=== PATIENT | female | born 2000 | race Caucasian/White ===

== ENCOUNTER → 2020-03-10 09:21 | Outpatient (BNVA) | payer MEDICAID, SELFPAY | PROVIDERS: Visit Provider Obstetrics & Gynecology | DX: Z34.01 Encounter for supervision of normal first pregnancy, first trimester (principal) | CPT/HCPCS: 80053; 80307; 84315; 85027; 86592; 86762; 86803; 86850; 86900; 87340; 87806 ==

== ENCOUNTER → 2020-04-03 14:36 | Outpatient (BNVA) | payer MEDICAID, SELFPAY | PROVIDERS: Visit Provider Obstetrics & Gynecology | DX: O26.891 Other specified pregnancy related conditions, first trimester (principal); N89.8 Other specified noninflammatory disorders of vagina; O23.599 Infection of other part of genital tract in pregnancy, unspecified trimester; B96.89 Other specified bacterial agents as the cause of diseases classified elsewhere | CPT/HCPCS: 84315; 87210; 88175 ==

== ENCOUNTER → 2020-05-23 16:21 | Outpatient (BNVA) | payer MEDICAID, SELFPAY | PROVIDERS: Visit Provider Obstetrics & Gynecology | DX: Z36.89 Encounter for other specified antenatal screening (principal) | CPT/HCPCS: 76805 ==

== ENCOUNTER → 2020-07-24 10:01 | Outpatient (BNVA) | payer MEDICAID, SELFPAY | PROVIDERS: Visit Provider Obstetrics & Gynecology | DX: O99.333 Smoking (tobacco) complicating pregnancy, third trimester (principal); F17.210 Nicotine dependence, cigarettes, uncomplicated; Z3A.29 29 weeks gestation of pregnancy | CPT/HCPCS: 82950; 84315; 85025 ==

== ENCOUNTER → 2020-07-31 10:03 | Outpatient (BNVA) | payer MEDICAID, SELFPAY | PROVIDERS: Visit Provider Obstetrics & Gynecology | DX: Z34.02 Encounter for supervision of normal first pregnancy, second trimester (principal) | CPT/HCPCS: 82951; 82952 ==

== ENCOUNTER → 2020-08-30 11:00 | Outpatient (BNVA) | payer MEDICAID, SELFPAY | PROVIDERS: Visit Provider Nurse Practitioner Women's Health | DX: O99.013 Anemia complicating pregnancy, third trimester (principal); D64.9 Anemia, unspecified; O99.333 Smoking (tobacco) complicating pregnancy, third trimester; F17.200 Nicotine dependence, unspecified, uncomplicated | CPT/HCPCS: 84315; 85027 ==

== ENCOUNTER → 2020-09-11 08:01 | Outpatient (BNVA) | payer MEDICAID, SELFPAY | PROVIDERS: Visit Provider Obstetrics & Gynecology | DX: Z34.03 Encounter for supervision of normal first pregnancy, third trimester (principal) | CPT/HCPCS: 84315; 87081 ==

== ENCOUNTER 2020-09-20 20:07 | Outpatient (CLI) | payer MEDICAID, SELFPAY ==
[2020-09-20 20:25] VITALS: BP 121/71; PULSE 106
[2020-09-20 20:30] VITALS: RESP 18; BMI 33.5
[2020-09-20 21:16] LABS: Nitrazine Paper, PH Negative
[2020-09-20 22:16] VITALS: BP 115/71; PULSE 106
[2020-09-20 22:34] VITALS: BP 118/70; PULSE 96
[2020-09-20 22:35] VITALS: TEMP 36.2
[2020-09-20 22:41] VITALS: BP 118/70; PULSE 96; RESP 17; TEMP 36.2
== END 2020-09-20 22:41 | disposition home or self-care (01) ==
LOC: OPOB 20:23 → OBGYN 20:24
PROVIDERS: Visit Provider Obstetrics & Gynecology
DX: O26.899 Other specified pregnancy related conditions, unspecified trimester (principal); Z3A.00 Weeks of gestation of pregnancy not specified; N89.8 Other specified noninflammatory disorders of vagina
CPT/HCPCS: 59025; 83986; 99211

== ENCOUNTER → 2020-09-26 08:44 | Outpatient (BNVA) | payer MEDICAID, SELFPAY | PROVIDERS: Visit Provider Obstetrics & Gynecology | DX: O99.820 Streptococcus B carrier state complicating pregnancy (principal); O99.333 Smoking (tobacco) complicating pregnancy, third trimester; F17.200 Nicotine dependence, unspecified, uncomplicated; O21.9 Vomiting of pregnancy, unspecified; Z3A.00 Weeks of gestation of pregnancy not specified | CPT/HCPCS: 84315; 87635 ==

== ENCOUNTER 2020-10-02 09:05 | Outpatient (CLI) | payer MEDICAID, SELFPAY ==
[2020-10-02 09:21] VITALS: BP 130/70; PULSE 104
[2020-10-02 09:22] VITALS: TEMP 36.6
[2020-10-02 09:29] VITALS: RESP 18; TEMP 36.6
[2020-10-02 09:30] VITALS: BMI 35.4
[2020-10-02 09:52] VITALS: BP 121/78; PULSE 100
--- NOTE | 2020-10-02 10:12 | PC.NURSE ---
PATIENT HAD LOTS OF QUESTIONS, THEY WERE ANSWERED. THIS APPLICATION DESIGN ENGINEER CALLED DR. TOM AND INFORMED HER ABOUT IN AM AND SHE WAS NOT AWARE OF IT BUT WILL BE HERE.
[2020-10-02 10:14] VITALS: BP 121/78; PULSE 100; RESP 18; TEMP 36.6
== END 2020-10-02 10:05 | disposition home or self-care (01) ==
LOC: OPOB 09:09 → OBGYN 09:10
PROVIDERS: Visit Provider Obstetrics & Gynecology
DX: O36.8190 Decreased fetal movements, unspecified trimester, not applicable or unspecified (principal); Z3A.00 Weeks of gestation of pregnancy not specified
CPT/HCPCS: 59025; 84315; 99211

== ENCOUNTER 2020-10-03 04:30 | Inpatient (IN) | payer MEDICAID, SELFPAY ==
[2020-10-03] VITALS (15 sets, daily range): BP systolic 93–141; BP diastolic 56–101; PULSE 78–101; RESP 16–18; TEMP 36.8; O2SAT 97–100; BMI 35.6
[2020-10-03 05:08] LABS: Basophils % 0.3 %; Eosinophils # 0.1 10^3/uL (0.0-0.8); Eosinophils % 0.8 %; Hematocrit 36.7 % (37.0-47.0); Hemoglobin 12.2 g/dL (11.5-15.3); Lymphocytes # 1.9 10^3/uL (0.8-4.8); Lymphocytes % 20.9 %; Mean Corpuscular HGB Conc 33.2 g/dL (30.0-36.0); Mean Corpuscular Hemoglobin 29.7 pg (28.0-34.0); Mean Corpuscular Volume 89.3 fL (81-99); Mean Platelet Volume 12.1 fL (7.4-10.4); Monocytes # 0.6 10^3/uL (0.2-0.9); Monocytes % 6.9 %; Neutrophils # 6.49 10^3/uL (1.8-7.7); Neutrophils % 70.4 %; Nucleated Red Blood Cells % 0 %; Platelet Count 157 10^3/cmm (130-400); Red Blood Count 4.11 10^6/uL (4.1-5.3); Red Cell Distribution Width 17.2 % (12.1-15.1); White Blood Count 9.2 10^3/uL (4.0-10.0)
[2020-10-03] MEDS: lactated ringers 1,000 ML 999 ML IV ×2 (05:20→15:42)
[2020-10-03] MEDS: lactated ringers 1,000 ML 125 ML IV (06:25)
--- NOTE | 2020-10-03 06:46 | ANES.PREANE2 ---
Pre-Anesthetic Assessment Pre-Anesthetic Assessment: Height/Weight: Height 1.6 m Weight 91.172 kg Temp Pulse Resp BP 98.3 F 100 16 114/77 10/03/20 06:08 10/03/20 04:46 10/03/20 04:55 10/03/20 04:46 Preop Diagnosis: macrosomia Proposed Procedure: Operation Date: 10/03/20 07:20 Proposed Procedures p Section 26330 P08.0(Not Applicable) - Elza Paul MD Was Beta Adrienne taken within 24 hours: N/A Was Clonidine taken within 24 hours: N/A Last intake: 10/03/20 0000 Social: Social History: Tobacco Comment: Vape Exam: Pre-Anes Outpt Exam: alert, oriented x 3, clear to auscultation bilaterally and regular rate & rhythm Airway: Submandibular: WNL Cervical ROM: WNL MP: 2 Dentition: Full History/ROS: No significant history except as noted and No significant complaints Pulmonary: Pulmonary: None reported CV/HEM: CV/HEM: Anemia and None reported : : None reported Hepatic: Hepatic: None reported GI: GI: GERD Metabolic: Comments: borderline gestational diabetes. Musc/skel: Musc/skel: None reported Neuropsych: Neuropsych: None reported Anesthetic Plan: ASA status: 2 Anesthesia: Anesthesia Evaluation and Eval. for regional block Risk of > 500 ml blood loss (7ml/kg in children): Yes, adequate IV access and fluids planned Meds/Allergies Current Medications: Current Medications Generic Name Dose Route Start Last Admin Trade Name Freq PRN Reason Stop Dose Admin Lactated Ringer's 1,000 mls @ 125 m ls/hr 10/03/20 05:00 10/03/20 06:25 Lactated Ringers IV 125 mls/hr .Q8H YADIRA Administration PFSH Anesthesia PFSH: Medical History No pertinent past medical history neghx: htn,dm,thyroid,dvt/pe,herpes Denies partners with herpes Surgical History No history of previous surgery Family History Family/Other Breast cancer Paternal great grandmother-- older age Diabetes Maternal aunt Mother Hypercholesteremia Hypertension Thyroid disease Father Stroke Social History Smoking and tobacco status: current every day smoker e-cigarettes E-cig/vape details: Reports vapes multiple times per day Alcohol intake: never Additional social history: - Tobacco use: Vape-- 20 times per day Alcohol use: Never Drug use: Never Female Reproductive History: : 1 Data Anesthesia CBC & Chem 7: 10/03/20 04:50 Other Labs: Laboratory Results - last 48 hr 10/03/20 04:50 WBC 9.2 RBC 4.11 Hgb 12.2 Hct 36.7 L MCV 89.3 MCH 29.7 MCHC 33.2 RDW 17.2 H Plt Count 157 MPV 12.1 H Neut % (Auto) 70.4 Lymph % (Auto) 20.9 [place] % (Auto) 6.9 Eos % (Auto) 0.8 Baso % (Auto) 0.3 Neut # (Auto) 6.49 Lymph # (Auto) 1.9 [place] # (Auto) 0.6 Eos # (Auto) 0.1 Baso # (Auto) 0.0 Nucleated RBC % (auto) 0 Nucleated RBCs # 0.0 Cardiac Studies: No Data to Display
[2020-10-03] MEDS: famotidine 20 mg/2 mL INJ IVP (06:54)
[2020-10-03] MEDS: metoclopramide 5 mg/mL SDV 2 mL 10 MG IVP (06:54)
[2020-10-03] MEDS: citric acid-sodium citrate 30 mL UDC PO (06:54)
--- NOTE | 2020-10-03 07:03 | W.PM.OPSUD ---
Surgery/Procedure H&P Update DATE OF PROCEDURE: October 03, 2020 DATE H&P PERFORMED: 10/02/20 H&P UPDATE INFORMATION: I have reviewed H&P completed within last 30 days, I have examined patient prior to procedure, No changes to prior documentation and Changes to prior documentation as noted here CHANGES TO PREVIOUS DOCUMENTATION: Risks, benefits and alternatives to procedure were discussed with the patient including but not limited to: pain, bleeding, infection, development of a blood clot or pulmonary embolism, damage to bowel, bladder, ureters, blood vessels, formation of scar tissue or even . . These are the most common complications, but there may be other, unforseen complications that could arise during surgery. The patient accepts these risks and desires to proceed. PREOP DIAGNOSIS: macrosomia PLANNED PROCEDURE: Operation Date: 10/03/20 07:20 Proposed Procedures p Section 06243 P08.0(Not Applicable) - Elza Paul MD
--- NOTE | 2020-10-03 08:16 | P.OP_ITS ---
Operative Report Date of procedure: October 03, 2020 Pre-op Diagnosis: macrosomia Post-op diagnosis: same Post-op Findings: term male in cephalic presentation. normal appearing uterus, tubes and ovaries Procedure Done: primary Specimens removed/disposition: placenta Pathology: none sent Anesthesia: Other (spinal) Estimated blood loss (mL): 100 IV fluids (mL): 1,000 Urine output (mL): 400 Complications: none Condition: stable Disposition: PACU Brief History: 20 year old at 39 2/7 weeks with known macrosomia elected to have a primary Procedure: The patient was taken to the operating room where spinal anesthesia was administered and found to be adequate. She was prepped and draped in the normal sterile fashion in the dorsal supine position with a leftward tilt. A Pfannenstiel skin incision was made and carried down to the underlying layer of fascia. The fascia was nicked in the midline and extended laterally with the Lowe scissors. The fascia was then tented up and the rectus muscles dissected off sharply. The rectus muscles were and the peritoneum entered bluntly with the digit. The peritoneal incision was extended superiorly and inferiorly with good visualization of the bladder. The Kyle O retractor was placed. It was clear of any bowel or omentum. The bladder flap was created sharply with the Metzenbaum scissors. A low transverse uterine incision was made and carried down to the bag of water. The bag of water was ruptured and the uterine incision extended cephalocaudad. The scalp was grasped and brought through the incision. The nose and mouth were bulb suctioned. The shoulders and body delivered atraumatically. The baby was allowed to rest, while being dried, for 1 minute and then the cord was clamped and cut. The baby was handed to the waiting greenhouse specialist. The placenta was delivered by expression. The uterus was exteriorized and cleared of all clots and debris. The uterine incision was closed with 0 Vicryl in a running fashion. A second imbricating layer of 3-0 Monocryl was used to close the uterus. The bladder flap was closed with 3-0 Monocryl. There was excellent hemostasis. The Kyle O retractor was removed. The uterus was returned to the abdomen. The peritoneum was closed with 3-0 Monocryl, incorporating the rectus muscle. The fascia was closed with 0 Vicryl in 2 separate sutures overlapping in the midline. The skin was closed with absorbable adelso. Apgars on baby 9 at 1 minute and 9 at 5 minutes. weight 9 pounds 5 ounces. Mother and baby were stable post delivery.
[2020-10-03] MEDS: ketorolac 30 mg/mL INJ IVP ×2 (14:33→20:52)
[2020-10-03] MEDS: dextrose 5%-lactated ringers 1,000 ML 125 ML IV (15:06)
[2020-10-03] MEDS: scopolamine 1.5 Patch 1 PATCH TRANSDERMA (16:55)
[2020-10-03] MEDS: FUROsemide 10 mg/mL SDV 2mL IVP (18:25)
[2020-10-03 21:23] LABS: Hematocrit 32.8 % (37.0-47.0); Hemoglobin 10.7 g/dL (11.5-15.3); Mean Corpuscular HGB Conc 32.6 g/dL (30.0-36.0); Mean Corpuscular Hemoglobin 29.8 pg (28.0-34.0); Mean Corpuscular Volume 91.4 fL (81-99); Mean Platelet Volume 12.2 fL (7.4-10.4); Platelet Count 122 10^3/cmm (130-400); Red Blood Count 3.59 10^6/uL (4.1-5.3); Red Cell Distribution Width 17.1 % (12.1-15.1); White Blood Count 10.6 10^3/uL (4.0-10.0)
[2020-10-04] MEDS: dextrose 5%-lactated ringers 1,000 ML 125 ML IV (00:45)
[2020-10-04] MEDS: ketorolac 30 mg/mL INJ IVP (03:38)
[2020-10-04 04:30] VITALS: BP 118/72; PULSE 90; TEMP 36.7
--- NOTE | 2020-10-04 07:35 | P.PN_ITS ---
Subjective Subjective: Interval history: The patient is doing well this morning. pain is well controlled. she is tolerating a regular diet. she is ambulating. baby is feeding well. Medications: Reviewed: Yes Vitals/I&O/Wt Last Vital Signs Temp 98.0 F 10/04/20 04:30 Pulse 90 10/04/20 04:30 Resp 16 10/03/20 22:15 BP 118/72 10/04/20 04:30 Pulse Ox 97 10/03/20 22:15 10/03/20 10/04/20 10/04/20 22:59 06:59 14:59 Intake Total 1000 / 2200 Output Total 840 / 2075 1600 / 3675 Balance -840 / -875 -600 / -1475 Weight last 48 hrs Weight 201 lb Physical Exam Const: COMMON NORMALS: no acute distress, average body habitus, patient oriented x3, no limitations, healthy appearing, alert and well nourished GENERAL APPEARANCE: cooperative, comfortable, well kempt and well developed ORIENTATION/CONSCIOUSNESS: Yes awake, Yes oriented to person, Yes oriented to place and Yes oriented to time Resp: COMMON NORMALS: normal respiratory effort EFFORT & INSPECTION: Yes able to speak in complete sentences GI: COMMON NORMALS: Soft to palpation and non-tender PALPATION: Yes Soft to palpation Extremity: COMMON NORMALS: no clubbing, cyanosis or edema Neuro: COMMON NORMALS: patient oriented x3 SENSORIUM/ORIENTATION: Yes alert, Yes oriented to person, Yes oriented to place and Yes oriented to time Psych: APPEARANCE: Yes well kempt Skin: WOUNDS: Yes surgical site (clean/dry and covered) Urinary Catheter Management^: Weiss: Cath Placed During This Visit: yes Reason for Continuing Indwelling Catheter: Perioperative Use in Selected Surgeries Urinary Catheter Date of Insertion: 10/03/20 Urinary Catheter Time of Insertion: 07:30 Data : 10/03/20 21:00 A&P Assessment and plan (1) Postoperative state: doing well postoperatively anticipated discharge tomorrow Status: Acute Attestations Medical Necessity Statement*: post op after . admit as inpatient Coding Level of Care Code Acute Plastic Extrusion Operator for Navid Baker Diagnoses Postoperative state Z98.890
[2020-10-04] MEDS: prenatal vitamin Capsule 1 CAP PO (09:47)
[2020-10-04] MEDS: docusate sodium 100 mg Capsule PO (09:47)
[2020-10-04 11:12] VITALS: BP 110/65; PULSE 89; RESP 18; TEMP 37; O2SAT 96
[2020-10-04] MEDS: HYDROcodone-acetaminophen 5-325 mg Tablet PO (11:17)
[2020-10-04 16:52] VITALS: BP 120/78; PULSE 100; RESP 16; TEMP 36.8; O2SAT 97
[2020-10-04 16:53] VITALS: BP 120/78; PULSE 100; RESP 16; TEMP 36.8; O2SAT 97
--- NOTE | 2020-10-05 07:37 | P.DS_ITS ---
Discharge Providers Date of Admission: 10/03/20 04:30 Date of Discharge: October 04, 2020 Attending Provider at Admission: Elza Paul MD Attending Provider at Discharge: Elza Paul MD Diagnoses at Discharge Discharge Diagnosis (1) Postoperative state: Status: Acute Reason for Visit Reason for Visit: Hospital Course Hospital Course The patient was admitted for primary at term. She was doing well POD#1 and in the evening, the baby took a turn for the worse and needed to be transferred to [place]. The patient requested discharge to go with the baby. She was discharged in stable condition. Physical Exam Urinary Catheter Management^: Weiss: Cath Placed During This Visit: yes, but has since been removed by the nurse Reason for Continuing Indwelling Catheter: Decision to DC Catheter Urinary Catheter Date of Insertion: 10/03/20 Urinary Catheter Time of Insertion: 07:30 Date Urinary Catheter Removed: 10/04/20 Time Urinary Catheter Discontinued: 08:00 Discharge Data Vitals: Last Vital Signs Temp 98.3 F 10/04/20 16:53 Pulse 100 10/04/20 16:53 Resp 16 10/04/20 16:53 BP 120/78 10/04/20 16:53 Pulse Ox 97 10/04/20 16:53 Discharge Plan Discharge Patient Disposition: Home Prescriptions: New ibuprofen 800 mg Tablet 800 mg PO TID RF: 0 docusate sodium [DOK] 100 mg Capsule 100 mg PO BID RF: 0 hydrocodone-acetaminophen 5-325 mg tablet 1 tab PO Q4H Qty: 14 RF: 0 Continued calcium carbonate [Antacid Extra-Strength] 300 mg (750 mg) tablet,chewable 300 mg PO BID RF: 0 polyethylene glycol 3350 [Miralax] 17 gram/dose powder 17 g PO DAILY RF: 0 famotidine [Pepcid] 40 mg tablet 40 mg PO DAILY Qty: 30 RF: 2 metoclopramide HCl [Reglan] 10 mg tablet 10 mg PO Q6H PRN (Reason: nausea and vomiting) Qty: 120 RF: 0 acetaminophen [Tylenol Extra Strength] 500 mg tablet 500 mg PO Q6H PRN (Reason: Pain) RF: 0 ferrous sulfate [Feosol] 325 mg (65 mg iron) tablet 325 mg PO TID RF: 0 Gummies 400 mcg-35 mg- 25 mg-5 mg tablet,chewable 2 tab PO DAILY RF: 0 Discharge Orders: Discharge Order (Routine); Ordered 10/04/20 Ordered By: Elza Paul Referrals: Elza Paul MD [Physician] - 4-7 days (Please keep scheduled appointments on October 11, 2020 at 1:00 PM for mom's 1 week incision check up with Dr. Paul and on November 16, 2020 at 1:00 PM for mom's [address] up [address] Paul. ) Discharge Diet: As Directed Discharge Activity: Limit activity as instructed Patient Instructions: OB Abdominal Surgery - [facility], OB [facility], OB Discharge Report, OB Food/Drug Interaction Guide, OB Care at Home, Opioid Safety, OB Home Care Discharge Attestations Time Spent in Discharge Care*: less than 30 min Quality Metrics Clinical Quality Measures During this hospital stay, did patient experience: None Coding Level of Care Code Acute [facility] note Diagnoses Postoperative state Z98.890
--- NOTE | 2020-10-05 16:19 | PC.RESP ---
SMOKING CESSATION INFORMATION SENT TO PATIENT.
== END 2020-10-04 17:30 | disposition home or self-care (01) | DRG 788 ==
PROVIDERS: Admitting Provider Obstetrics & Gynecology; Visit Provider Obstetrics & Gynecology
PROC: 10D00Z1 Extraction of Products of Conception, Low, Open Approach (ICD-10-PCS; CPT 59514; principal; 2020-10-03 07:00)
DX: O36.63X0 Maternal care for excessive fetal growth, third trimester, not applicable or unspecified (principal); O99.334 Smoking (tobacco) complicating childbirth; F17.290 Nicotine dependence, other tobacco product, uncomplicated; Z3A.39 39 weeks gestation of pregnancy; Z37.0 Single live birth
CPT/HCPCS: 36415; 51702; 59025; 59409; 85025; 85027; 96374; 96375; J0690; J1885; J1940; J2274; J2405; J2765; J3490

== ENCOUNTER → 2020-12-08 10:56 | Outpatient (BNVA) | payer MEDICAID, SELFPAY | PROVIDERS: Visit Provider Obstetrics & Gynecology | DX: Z30.9 Encounter for contraceptive management, unspecified (principal); G47.00 Insomnia, unspecified; Z30.430 Encounter for insertion of intrauterine contraceptive device; F41.8 Other specified anxiety disorders | CPT/HCPCS: 81025; 84443 ==

== ENCOUNTER → 2023-12-03 08:03 | Outpatient (BNVA) | payer SELFPAY | PROVIDERS: Visit Provider Specialist | DX: S42.351A Displaced comminuted fracture of shaft of humerus, right arm, initial encounter for closed fracture; W18.39XA Other fall on same level, initial encounter | CPT/HCPCS: 73060 ==